=== PATIENT | female | born 1955 | race Caucasian/White ===

== ENCOUNTER 2025-07-21 05:34 | Inpatient (IN) ==
[2025-07-17 15:33] LABS: Basophils # (Auto) 0.04 K/mcL (0.00-0.30); Basophils % (Auto) 0.5 % (0.0-2.0); Eosinophils # (Auto) 0.09 K/mcL (0.00-0.70); Eosinophils % (Auto) 1.1 % (0.0-7.0); Hematocrit 35.6 % (34.1-44.9); Hemoglobin 11.9 g/dL (11.2-15.7); Lymphocytes # (Auto) 1.49 K/mcL (1.50-4.80); Lymphocytes % (Auto) 18.8 % (15.5-49.0); Mean Corpuscular HGB Conc 33.4 g/dL (31.0-36.0); Monocytes # (Auto) 0.64 K/mcL (0.10-0.90); Monocytes % (Auto) 8.1 % (1.0-12.0); Neutrophils % (Auto) 71.1 % (38.0-78.0); Platelet Count 306 K/mcL (140-440); RBC 3.78 M/mcL (3.59-5.38); WBC 7.9 K/mcL (4.5-11.0)
[2025-07-17 15:55] LABS: ALT/SGPT 22 U/L (<40); AST/SGOT 24 U/L (<32); Albumin 4.5 gm/dL (3.2-5.2); Albumin/Globulin Ratio 1.7 (1.0-2.3); Alkaline Phosphatase 71 U/L (39-117); Anion Gap 11.0 (8.0-16.0); Bilirubin,Total 0.2 mg/dL (0.1-1.0); Blood Urea Nitrogen 13 mg/dL (8-23); Calcium 9.6 mg/dL (8.6-10.4); Carbon Dioxide 24 mmol/L (22-30); Chloride 93 mmol/L (96-108); Globulin 2.6 gm/dL (2.2-3.7); Glucose 89 mg/dL (70-105); Potassium 4.1 mmol/L (3.3-5.1); Sodium 128 mmol/L (133-145)
[2025-07-17 18:22] LABS: INR 1.0 (0.9-1.1); Prothrombin Time 14.0 sec (11.9-14.5)
[2025-07-17 23:47] LABS: Bilirubin,Urine Negative (Negative); Color,Urine Yellow; Glucose,Urine (UA) Negative (Negative); Ketones,Urine Negative (Negative); Leukocyte Esterase,Urine Negative /uL (Negative); PH,Urine 7.0 (5.0-9.0); Protein,Urine Negative (Negative); Specific Gravity,Urine 1.005 (1.000-1.035); Urobilinogen,Urine Negative
[2025-07-21] MEDS: ceFAZolin 2 GM in DEXTROSE 5% IN WATER 50 ML IV SCH (07:09)
[2025-07-21] MEDS ORDERED: MAGNESIUM SULFATE 2 GM/50 ML BAG IV ONE (07:12)
[2025-07-21] MEDS ORDERED: LIDOCAINE 2% PF 5 ML VIAL ONE (07:12)
[2025-07-21] MEDS ORDERED: ONDANSETRON 4 MG/2 ML VIAL ONE (07:12)
[2025-07-21] MEDS ORDERED: PROPOFOL 200 MG/20 ML VIAL IV ONE (07:12)
[2025-07-21] MEDS ORDERED: fentaNYL 100 MCG/2 ML VIAL ONE (07:12)
[2025-07-21] MEDS ORDERED: TRANEXAMIC ACID 1,000 MG/10 ML VIAL ONE (07:12)
[2025-07-21] MEDS ORDERED: DEXAMETHASONE 10 MG/ML VIAL ONE (07:12)
[2025-07-21] MEDS ORDERED: ePHEDrine 50 MG/5 ML SYRINGE (ANEST) IV ONE (08:25)
[2025-07-21] MEDS ORDERED: HYDROmorphone 0.5 MG/0.5 ML SYRINGE ONE ×2 (08:26→09:19)
[2025-07-21] MEDS: BUPIVACAINE 0.25% 50 ML VIAL IJ ONE (09:57)
[2025-07-21] MEDS: THROMBIN (BOVINE) 5,000 UNIT VIAL TOPICAL ONE ×2 (09:57→15:57)
[2025-07-21] MEDS ORDERED: MEPERIDINE 25 MG/ML VIAL IV PRN (10:36)
[2025-07-21] MEDS ORDERED: IPRATROPIUM/ALBUTEROL 3 ML AMPUL.NEB NEB PRN (10:36)
[2025-07-21] MEDS ORDERED: ONDANSETRON 4 MG/2 ML VIAL IV PRN (10:36)
[2025-07-21] MEDS ORDERED: LACTATED RINGERS 250 ML IV PRN (10:36)
[2025-07-21] MEDS ORDERED: NALOXONE HCL 0.4 MG/ML VIAL IV PRN (10:36)
[2025-07-21] MEDS ORDERED: diphenhydrAMINE 50 MG/ML VIAL IV PRN (10:36)
[2025-07-21] MEDS ORDERED: ONDANSETRON 4 MG ODT TABLET SL PRN (11:00)
[2025-07-21] MEDS ORDERED: BENZOCAINE/MENTHOL 1 LOZENGE PO PRN (11:00)
[2025-07-21] MEDS ORDERED: PROMETHAZINE 25 MG/ML VIAL IV PRN (11:00)
[2025-07-21] MEDS ORDERED: ONDANSETRON 8 MG PO PRN (11:05)
[2025-07-21] MEDS: ACETAMINOPHEN 1,000 MG/100 ML BAG IV ONE (11:22)
[2025-07-21] MEDS: METHOCARBAMOL 1,000 MG/10 ML VIAL IV PRN (11:33)
[2025-07-21] MEDS: HYDROmorphone 0.5 MG/0.5 ML SYRINGE IV PRN (11:34)
[2025-07-21] MEDS: fentaNYL 100 MCG/2 ML VIAL IV PRN (11:45)
[2025-07-21] MEDS: METHOCARBAMOL 750 MG TABLET PO PRN (12:37)
[2025-07-21] MEDS: 0.9 % SODIUM CHLORIDE 10 ML SYRINGE IV SCH (14:23)
[2025-07-21] MEDS: 0.9 % SODIUM CHLORIDE 1,000 ML IV SCH (14:39)
[2025-07-21] MEDS: LACTATED RINGERS 1,000 ML IV SCH (15:57)
[2025-07-21] MEDS: morphine 15 MG TAB.SR.12H PO SCH (18:16)
[2025-07-21] MEDS: GELATIN SPONGE,ABSORBABLE 1 EACH SPONGE TOPICAL ONE (18:50)
[2025-07-21] MEDS: DOCUSATE SODIUM 100 MG CAPSULE PO SCH (20:30)
[2025-07-21] MEDS: ZOLPIDEM 5 MG TABLET PO PRN (20:30)
[2025-07-21] MEDS: LOSARTAN 25 MG TABLET PO SCH (20:30)
[2025-07-22] MEDS: ONDANSETRON 4 MG/2 ML VIAL IV PRN (05:09)
[2025-07-22 06:17] LABS: Hematocrit 31.0 % (34.1-44.9); Hemoglobin 10.3 g/dL (11.2-15.7)
[2025-07-22 06:39] LABS: Anion Gap 8.0 (8.0-16.0); Blood Urea Nitrogen 8 mg/dL (8-23); Calcium 8.0 mg/dL (8.6-10.4); Carbon Dioxide 24 mmol/L (22-30); Chloride 100 mmol/L (96-108); Glucose 109 mg/dL (70-105); Potassium 3.6 mmol/L (3.3-5.1); Sodium 132 mmol/L (133-145)
[2025-07-22] MEDS: LEVOTHYROXINE 125 MCG TABLET PO SCH (07:38)
[2025-07-22] MEDS: CELECOXIB 200 MG CAPSULE PO SCH (10:02)
[2025-07-22] MEDS: morphine 15 MG TAB.SR.12H PO SCH (14:02)
[2025-07-23] MEDS: ASPIRIN 81 MG TAB.CHEW CHEWED SCH (20:53)
[2025-07-24 02:53] VITALS: O2SAT 98
[2025-07-24 16:01] VITALS: TEMP 98.4
== END 2025-07-24 14:18 | disposition home health service (06) | DRG 402 ==
LOC: MEDSUR 05:34
PROVIDERS: ADMIT Orthopaedic Surgery Orthopaedic Surgery of the Spine; ATTEND Orthopaedic Surgery Orthopaedic Surgery of the Spine